=== PATIENT | male | born 1960 | race Caucasian/White ===

== ENCOUNTER → 2018-01-24 11:40 | Outpatient (CLI) | payer OTHER, SELFPAY ==
--- OUTSIDE RECORDS SUMMARY | 2018-03-22 09:20 | XMS RPT_ITS ---
:1960 Author Organization [facility] Care Team Providers Name Role Phone SUMIT KRISHNAMURTHY Referring Unavailable SUMIT KRISHNAMURTHY Attending Unavailable SUMIT KRISHNAMURTHY Referring Unavailable SUMIT KRISHNAMURTHY Referring Unavailable SUMIT KRISHNAMURTHY Attending Unavailable Sumit Krishnamurthy Primary Care Unavailable Referred, Self Attending Unavailable Alexander Riley Attending Unavailable Alexander Riley Referring Unavailable Sumit Krishnamurthy Primary Care Unavailable PROBLEMS PROBLEMS DATE TYPE CONDITION / CODE ATTENDING STATUS SOURCE 03/14/2017 Active Gastro-esophageal NA Active [facility] reflux disease [place] without esophagitis Repository / K21.9(ICD-10) 03/14/2017 Active Impaired fasting NA Active [facility] glucose / [place] R73.01(ICD-10) Repository 03/14/2017 Active Mixed hyperlipidemia NA Active [facility] / E78.2(ICD-10) [place] Repository 03/14/2017 Active Unknown / KRISHNAMURTHY, Active [facility] UNK(Unknown) SUMIT Mcmillan [place] Repository 03/10/2017 Active Other detention NA Active [facility] (current) drug [place] therapy / Repository Z79.899(ICD-10) PROCEDURES PROCEDURES No Procedure Records FoundRESULTS RESULTS Observed: 01/24/2018 Status: F Source: [place] CULTURE, NOSE 11:40 AM [facility] REPOSITORY Gram Stain Gram Stain Rare Epithelial cells No organisms seen Nasoph. Cult No growth in 48 hours. Performed By: #### [id number] #### [facility] [address] [place], [address] PROGRESS Observed: 12/06/2017 Status: COMPLETED Source: [place] 7:28 AM [facility] REPOSITORY O ID: [id number] Author: Sumit Krishnamurthy Service: (none) Author Type: Physician Type: Progress Notes Filed: 12/06/2017 7:34 AM Note Text: CC: Roger Driscoll is a 57 year old male who presents to the office for 6 months follow up HPI: HPL, trying to diet control, not interested in statin therapy, is taking fish oil supplement regulalry as well. 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 Has also cut back on fried foods. Cholesterol, Total Date Value Ref Range Status 11/26/2017 203 (H) <200 mg/dL Final Comment: <200 mg/dL, Desirable 200-239 mg/dL, Borderline high >239 mg/dL, High HDL Cholesterol Date Value Ref Range Status 11/26/2017 47 >39 mg/dL Final Comment: 40-59 mg/dL, Acceptable >59 mg/dL, High: Negative risk factor for coronary heart disease <40 mg/dL, Low: Positive risk factor for coronary heart disease LDL Cholesterol Date Value Ref Range Status 11/26/2017 133 (H) <100 mg/dL Final Comment: <100 mg/dL, Optimal 100-129 mg/dL, Near optimal/above optimal 130-159 mg/dL, Borderline high 160-189 mg/dL, High >189 mg/dL, Very high Secondary prevention optimal LDL Cholesterol levels are recommended to be < 70 mg/dL Triglyceride Date Value Ref Range Status 11/26/2017 114 <150 mg/dL Final Comment: <150 mg/dL, Normal 150-199 mg/dL, Borderline high 200-499 mg/dL, High >499 mg/dL, Very high Glucose (mg/dL) Date Value 11/26/2017 104 Potassium (mmol/L) Date Value 11/26/2017 4.2 Sodium (mmol/L) Date Value 11/26/2017 140 Chloride (mmol/L) Date Value 11/26/2017 102 CO2 (mmol/L) Date Value 11/26/2017 24 Creatinine (mg/dL) Date Value 11/26/2017 1.14 BUN (mg/dL) Date Value 11/26/2017 14 Anion Gap (mmol/L) Date Value 11/26/2017 14 Calcium (mg/dL) Date Value 11/26/2017 8.9 Protein, Total (g/dL) Date Value 11/26/2017 7.0 Albumin (g/dL) Date Value 11/26/2017 4.2 Bilirubin, Total (mg/dL) Date Value 11/26/2017 0.8 Alkaline Phosphatase (U/L) Date Value 11/26/2017 52 AST (U/L) Date Value 11/26/2017 26 ALT (U/L) Date Value 11/26/2017 30 Hemoglobin (g/dL) Date Value 11/26/2017 16.2 Hematocrit (%) Date Value 11/26/2017 47.5 WBC (k/uL) Date Value 11/26/2017 7.12 Elevated fasting glucose, has made diet improvements as above Hemoglobin A1C Date Value Ref Range Status 11/26/2017 5.5 4.3 - 5.6 % Final 02/15/2016 5.6 4.3 - 5.6 % Final Acid reflux, stable, taking pepcid 20 mg twice a day, no breakthrough symptoms except for when occasionally eating pizza Chronic shoulder pain, right side most significant, 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 Sometimes feels like the front of his shoulder area pops with arm flexion by description and difficulty with extension and internal rotation PAST MEDICAL HISTORY Diagnosis Date - Acid reflux - Elevated glucose 06/2015 - Hypercholesteremia 06/2015 PAST SURGICAL HISTORY Procedure Laterality Date - COLONOSCOPY 2012 - EGD 2012 Current Outpatient Prescriptions: pantoprazole DR (PROTONIX) 20 mg tablet Take 1 tablet by mouth once daily. FLUTICASONE PROPIONATE (FLONASE NASAL) Use in the nose. SAW/PYGEUM/NETTLE/PUMPKN/AA#17 (PROSTATE HEALTH FORMULA ORAL) Take by mouth. No current facility-administered medications for this visit. 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 Uvula midline. Neck: No LAD, no thyromegaly, no meningismus. CV: RRR, no murmur Lungs: CTA b/l, no wheezing Skin: No rashes, lesions, or wounds on exposed skin. No edema, normal pulses Weak lift off testing right shoulder, anterior TTP , no signs of impingement or bursitis, weakness of rotator cuff muscles ASSESSMENT/PLAN: 1. Gastroesophageal reflux disease without esophagitis - ICD9: 530.81, ICD10: K21.9 (primary diagnosis) - Discussed lifestyle modifications including losing weight, limiting caffeine, no meals three hours before sleep and head of bed elevation - Continue treatment with Pepcid 20 mg BID 2. Elevated fasting blood sugar - ICD9: 790.21, ICD10: R73.01 - stable, continue efforts at weight loss 3. Hyperlipidemia, mixed - ICD9: 272.2, ICD10: E78.2 - suboptimal control - Encouraged following a low fat, low cholesterol diet. - Discussed the benefits of regular aerobic exercise and weight loss. 4. Chronic pain of both shoulders - ICD9: 719.41, 338.29, ICD10: M25.511, G89.29, M25.512 - likely related to labrum disorder and rotator cuff partial tear/weakness, stretches and strengthening exercises given to him today, f/u for xray and MRI shoulder and referral to Orthopedics and PHYSICAL THERAPY when interested. Sumit Krishnamurthy DO Return if no improvement. Follow up with Sumit Krishnamurthy DO. Discussed risks, benefits, alternatives, and potential side effects of medications. Patient/Guardian expressed understanding and agreed with the plan. See patient instructions. Sumit Krishnamurthy DO [address] [place] [address] CNOV Observed: 12/05/2017 Status: COMPLETED Source: [place] 3:00 PM [facility] REPOSITORY Office Visit (FAMPWS) ROGER DRISCOLL ([id number]) 1960 M Date Time Provider Department 12/05/17 3:00 PM SUMIT KRISHNAMURTHY FAMReneWS During your visit today, we recorded the following information about you: Temperature Pulse Respiration Blood pressure 97 degrees 80/minute 16/minute 110/76 Weight 95.7 kg Sumit Krishnamurthy DO 12/05/2017 3:47 PM Signed Sumit Krishnamurthy DO 12/06/2017 7:34 AM Signed CC: Roger Driscoll is a 57 year old male who presents to the office for 6 months follow up HPI: HPL, trying to diet control, not interested in statin therapy, is taking fish oil supplement regulalry as well. 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 Has also cut back on fried foods. Cholesterol, Total Date Value Ref Range Status 11/26/2017 203 (H) <200 mg/dL Final Comment: <200 mg/dL, Desirable 200-239 mg/dL, Borderline high >239 mg/dL, High HDL Cholesterol Date Value Ref Range Status 11/26/2017 47 >39 mg/dL Final Comment: 40-59 mg/dL, Acceptable >59 mg/dL, High: Negative risk factor for coronary heart disease <40 mg/dL, Low: Positive risk factor for coronary heart disease LDL Cholesterol Date Value Ref Range Status 11/26/2017 133 (H) <100 mg/dL Final Comment: <100 mg/dL, Optimal 100-129 mg/dL, Near optimal/above optimal 130-159 mg/dL, Borderline high 160-189 mg/dL, High >189 mg/dL, Very high Secondary prevention optimal LDL Cholesterol levels are recommended to be < 70 mg/dL Triglyceride Date Value Ref Range Status 11/26/2017 114 <150 mg/dL Final Comment: <150 mg/dL, Normal 150-199 mg/dL, Borderline high 200-499 mg/dL, High >499 mg/dL, Very high Glucose (mg/dL) Date Value 11/26/2017 104 Potassium (mmol/L) Date Value 11/26/2017 4.2 Sodium (mmol/L) Date Value 11/26/2017 140 Chloride (mmol/L) Date Value 11/26/2017 102 CO2 (mmol/L) Date Value 11/26/2017 24 Creatinine (mg/dL) Date Value 11/26/2017 1.14 BUN (mg/dL) Date Value 11/26/2017 14 Anion Gap (mmol/L) Date Value 11/26/2017 14 Calcium (mg/dL) Date Value 11/26/2017 8.9 Protein, Total (g/dL) Date Value 11/26/2017 7.0 Albumin (g/dL) Date Value 11/26/2017 4.2 Bilirubin, Total (mg/dL) Date Value 11/26/2017 0.8 Alkaline Phosphatase (U/L) Date Value 11/26/2017 52 AST (U/L) Date Value 11/26/2017 26 ALT (U/L) Date Value 11/26/2017 30 Hemoglobin (g/dL) Date Value 11/26/2017 16.2 Hematocrit (%) Date Value 11/26/2017 47.5 WBC (k/uL) Date Value 11/26/2017 7.12 Elevated fasting glucose, has made diet improvements as above Hemoglobin A1C Date Value Ref Range Status 11/26/2017 5.5 4.3 - 5.6 % Final 02/15/2016 5.6 4.3 - 5.6 % Final Acid reflux, stable, taking pepcid 20 mg twice a day, no breakthrough symptoms except for when occasionally eating pizza Chronic shoulder pain, right side most significant, 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 Sometimes feels like the front of his shoulder area pops with arm flexion by description and difficulty with extension and internal rotation PAST MEDICAL HISTORY Diagnosis Date - Acid reflux - Elevated glucose 06/2015 - Hypercholesteremia 06/2015 PAST SURGICAL HISTORY Procedure Laterality Date - COLONOSCOPY 2012 - EGD 2012 Current Outpatient Prescriptions: pantoprazole DR (PROTONIX) 20 mg tablet Take 1 tablet by mouth once daily. FLUTICASONE PROPIONATE (FLONASE NASAL) Use in the nose. SAW/PYGEUM/NETTLE/PUMPKN/AA#17 (PROSTATE HEALTH FORMULA ORAL) Take by mouth. No current facility-administered medications for this visit. 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 Uvula midline. Neck: No LAD, no thyromegaly, no meningismus. CV: RRR, no murmur Lungs: CTA b/l, no wheezing Skin: No rashes, lesions, or wounds on exposed skin. No edema, normal pulses Weak lift off testing right shoulder, anterior TTP , no signs of impingement or bursitis, weakness of rotator cuff muscles ASSESSMENT/PLAN: 1. Gastroesophageal reflux disease without esophagitis - ICD9: 530.81, ICD10: K21.9 (primary diagnosis) - Discussed lifestyle modifications including losing weight, limiting caffeine, no meals three hours before sleep and head of bed elevation - Continue treatment with Pepcid 20 mg BID 2. Elevated fasting blood sugar - ICD9: 790.21, ICD10: R73.01 - stable, continue efforts at weight loss 3. Hyperlipidemia, mixed - ICD9: 272.2, ICD10: E78.2 - suboptimal control - Encouraged following a low fat, low cholesterol diet. - Discussed the benefits of regular aerobic exercise and weight loss. 4. Chronic pain of both shoulders - ICD9: 719.41, 338.29, ICD10: M25.511, G89.29, M25.512 - likely related to labrum disorder and rotator cuff partial tear/weakness, stretches and strengthening exercises given to him today, f/u for xray and MRI shoulder and referral to Orthopedics and PHYSICAL THERAPY when interested. Sumit Krishnamurthy DO Return if no improvement. Follow up with Sumit Krishnamurthy DO. Discussed risks, benefits, alternatives, and potential side effects of medications. Patient/Guardian expressed understanding and agreed with the plan. See patient instructions. Sumit Krishnamurthy DO [address] [place] [address] Referring Provider: SELF [200] Allergies As of Date: 12/05/2017 Noted Allergy Reaction ASPIRIN 02/14/2016 14 - Other: See Comments Comments: Weakness and flu symptoms Date Reviewed: 12/05/2017 Reviewed by: Susan Veliz LPN - Fully Assessed Reason for Visit: Follow Up [171] Cmt: Labs Primary Visit Diagnosis:Gastroesophageal reflux disease without esophagitis [K21.9] Other Visit Diagnoses:Elevated fasting blood sugar [R73.01] Hyperlipidemia, mixed [E78.2] Chronic pain of both shoulders [M25.511, G89.29, M25.512] Prescriptions as of 12/05/2017 Sig: PANTOPRAZOLE 20 MG TABLET,DEL* Take 1 tablet by mouth once d* FLONASE NASAL Use in the nose. PROSTATE HEALTH FORMULA ORAL Take by mouth. Problem List As Of Date 12/05/2017 Noted Resolved Seizures (HCC) [R56.9] INVALID FOR*02/14/2016 TIA (transient ischemic attack) [G45.9] INVALID FOR* Smoking [F17.200] INVALID FOR* Transient loss of consciousness [R55] INVALID FOR* Hyperlipidemia, mixed [E78.2] INVALID FOR* Elevated fasting blood sugar [R73.01] INVALID FOR* Gastroesophageal reflux disease without esophag*INVALID FOR* Chronic pain of both shoulders [M25.511, G89.29*INVALID FOR* Other instructions from your clinician: Medications Discontinued During This Encounter lamoTRIgine (LAMICTAL) 25 mg tablet 90 t* 2 02/23/2016 12/05/2017 Route: ORAL Sig: Take 1 tablet by mouth once daily. Disc: Reason for discontinue is not on file. lamoTRIgine (LAMICTAL) 100 mg tablet 60 t* 1 02/23/2016 12/05/2017 Route: ORAL Sig: Take 1 tablet by mouth twice daily. Disc: Reason for discontinue is not on file. Annotated image of STRO INTM ROTATOR CUFF EXERCISES PG1 last updated by Sumit Krishnamurthy on 12/05/2017 3:47 PM Annotated image of STRO INTM ROTATOR CUFF EXERCISES PG2 last updated by Sumit Krishnamurthy on 12/05/2017 3:47 PM Annotated image of STRO INTM ROTATOR CUFF EXERCISES PG3 last updated by Sumit Krishnamurthy on 12/05/2017 3:47 PM Annotated image of STRO INTM ROTATOR CUFF EXERCISES PG3 last updated by Sumit Krishnamurthy on 12/05/2017 3:47 PM Annotated image of STRO INTM ROTATOR CUFF EXERCISES PG4 last updated by Sumit Krishnamurthy on 12/05/2017 3:47 PM Annotated image of STRO INTM ROTATOR CUFF EXERCISES PG5 last updated by Sumit Krishnamurthy on 12/05/2017 3:47 PM Annotated image of STRO INTM ROTATOR CUFF EXERCISES PG6 last updated by Sumit Krishnamurthy on 12/05/2017 3:47 PM Annotated image of STRO INTM ROTATOR CUFF EXERCISES PG7 last updated by Sumit Krishnamurthy on 12/05/2017 3:47 PM Annotated image of STRO INTM ROTATOR CUFF EXERCISES PG8 last updated by Sumit Krishnamurthy on 12/05/2017 3:47 PM Encounter Status:Closed by SUMIT KRISHNAMURTHY DO on 12/06/17 CBC Collected: 11/26/2017 Status: F Source: [place] 7:59 AM [facility] REPOS[facility] TYPE CODE TESTS RESULT OUT OF REFERENCE UNITS RANGE LAB WBC 3.70-11.00 k/uL WBC 7.12 LAB RBC 4.20-6.00 m/uL RBC 5.22 LAB HGB 13.0-17.0 g/dL Hemoglobin 16.2 LAB HCT 39.0-51.0 % Hematocrit 47.5 LAB MCV 80.0-100.0 fL MCV 91.0 LAB MCH 26.0-34.0 pG MCH 31.0 LAB MCHC 30.5-36.0 g/dL MCHC 34.1 LAB RDWCV 11.5-15.0 % RDW-CV 11.9 LAB PLTCT 150-400 k/uL Platelet Count 262 LAB MPV 9.0-12.7 fL MPV 9.4 LAB ABSNUC <0.01 k/uL Absolute nRBC <0.01 Performed By: #### CBC, CMP, LIPB, HBA1C #### [facility] [address] [place], [place] [address] COMP METABOLIC PANEL Collected: 11/26/2017 Status: F Source: [place] 7:59 AM [facility] REPOSITORY TYPE CODE TESTS RESULT OUT OF REFERENCE UNITS RANGE LAB TP 6.3-8.0 g/dL Protein, Total 7.0 LAB ALB 3.9-4.9 g/dL Albumin 4.2 LAB CA 8.5-10.2 mg/dL Calcium, Total 8.9 LAB TBIL 0.2-1.3 mg/dL Bilirubin, Total 0.8 LAB ALKP 38-113 U/L Alkaline Phosphatase 52 LAB AST 14-40 U/L AST 26 LAB GLU 74-99 mg/dL Glucose High 104 Result Comment: The [place] Diabetes Association (ADA) provides guidance for cutoff values for fasting glucose and random glucose. The ADA defines fasting as no caloric intake for at least 8 hours. Fas ting plasma glucose results between 100 to 125 mg/dL indicate increased risk for diabetes (prediabetes). Fasting plasma glucose results greater than or equal to 126 mg/dL meet the criteria for diagnosis of diabetes. In the absence of unequivocal hyperglycemia, results should be confirmed by repeat testing. In a patient with classic symptoms of hyperglycemia or hyperglycemic crisis, random plasma glucose results greater than or equal to 200 mg/dL meet the criteria for diagnosis of diabetes. Reference: Standards of Medical Care in Diabetes 2016, [place] Diabetes Association. Diabetes Care. 2016.39(Suppl 1). LAB BUN 9-24 mg/dL BUN 14 LAB CRET 0.73-1.22 mg/dL Creatinine 1.14 LAB NA 136-144 mmol/L Sodium 140 LAB K 3.7-5.1 mmol/L Potassium 4.2 LAB CL 97-105 mmol/L Chloride 102 LAB CO2 22-30 mmol/L CO2 24 LAB AGAP 9-18 mmol/L Anion Gap 14 LAB ALT 10-54 U/L ALT 30 LAB GFRAA eGFR- Amer. >60 LAB GFRNAA . eGFR-All Other Races >60 Result Comment: eGFR (Estimated GFR) Units of measure: mL/min/1.73 meters squared eGFR is derived from the reexpressed MDRD Study equation using the following parameters: serum creatinine, age, gender and race. The creatinine assay has been calibrated to be traceable to IDMS. An eGFR <60 mL/min/1.73m2 for >3 months is consistent with chronic kidney disease. Refer to KDOQI guidelines for clinical interpretation. In patients with unstable renal function, e.g. those with acute kidney injury, the eGFR may not accurately reflect actual GFR. Performed By: #### CBC, CMP, LIPB, HBA1C #### [facility] [address] [place], [place] [address] LIPID PANEL, BASIC Collected: 11/26/2017 Status: F Source: [place] 7:59 AM [facility] [place] REPOSITORY TYPE CODE TESTS RESULT OUT OF REFERENCE UNITS RANGE LAB CHOL <200 mg/dL Cholesterol High 203 Result Comment: <200 mg/dL, Desirable 200-239 mg/dL, Borderline high >239 mg/dL, High LAB TRIGLY <150 mg/dL Triglyceride 114 Result Comment: <150 mg/dL, Normal 150-199 mg/dL, Borderline high 200-499 mg/dL, High >499 mg/dL, Very high LAB HDL >39 mg/dL HDL-Cholesterol 47 Result Comment: 40-59 mg/dL, Acceptable >59 mg/dL, High: Negative risk factor for coronary heart disease <40 mg/dL, Low: Positive risk factor for coronary heart disease LAB LDL <100 mg/dL LDL-Cholesterol High 133 Result Comment: <100 mg/dL, Optimal 100-129 mg/dL, Near optimal/above optimal 130-159 mg/dL, Borderline high 160-189 mg/dL, High >189 mg/dL, Very high Secondary prevention optimal LDL Cholesterol levels are recommended to be < 70 mg/dL LAB NONHDL <130 mg/dL Non HDL High Cholesterol 156 Result Comment: <130 mg/dL, Optimal 130-159 mg/dL, Near optimal/above optimal 160-189 mg/dL, Borderline high 190-219 mg/dL, High >219 mg/dL, Very high Secondary prevention optimal non HDL Cholesterol levels are recommended to be < 100 mg/dL LAB FT hrs Fasting Time 9 LAB VLDL <30 mg/dL VLDL Cholesterol 23 LAB TCHDL <5.10 TC:HDL Ratio 4.32 LAB LDLHDL <2.54 High LDL:HDL Ratio 2.83 Result Comment: Reference: 1. National Cholesterol Education Program ATP III Guideline At-A-Glance Quick Desk Reference: National Heart, Lung, and Blood [place]. National Institutes of Health. 2001: NIH Publication No. 01-3305. 2. An International Atherosclerosis Society position paper: global recommendations for the management of dyslipidemia: executive summary, Atherosclerosis. 2014: 232(2):410-413. Performed By: #### CBC, CMP, LIPB, HBA1C #### [facility] [address] [place], [place] [address] HEMOGLOBIN A1C Collected: 11/26/2017 Status: F Source: [place] 7:59 AM [facility] REPOSITORY TYPE CODE TESTS RESULT OUT OF REFERENCE UNITS RANGE LAB HGBA1C 4.3-5.6 % Hemoglobin A1c 5.5 LAB HBA0 mg/dL Est. Average Glucose 111 Result Comment: eAG: (Estimated average glucose) is a calculated value from HgbA1c and is consumer sales representative of the average blood glucose level in the last 2-3 month period. Performed By: #### CBC, CMP, LIPB, HBA1C #### [facility] [address] [place], [place] [address] PROGRESS Observed: 03/14/2017 Status: COMPLETED Source: [place] 12:09 PM [facility] REPOSITORY HNO ID: [id number] Author: Sumit Krishnamurthy Service: (none) Author Type: Physician Type: Progress Notes Filed: 03/14/2017 12:16 PM Note Text: CC: Roger Driscoll is a 57 year old male who presents to the office for physical HPI HPL, stopped taking statin therapy, wasn't interested in continuing, trying to diet control. Denies CP or dyspnea or dizziness/LH Elevated fasting glucose, trying to cut back on simple sugars/carbs, not exercising regularly at this time Acid reflux, interested in trying off his PPI, was on Pepcid prior to the Protonix, has cut out soda, no smoking, no carbonated beverages. Denies melena or BRBPR or dysphagia symptoms. Occasional increased heartburn when eating red sauces. 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 No swelling, feels a popping sensation in anterior shoulder. No use of NSAIDs, rare icing with some relief. PAST MEDICAL HISTORY Diagnosis Date - Acid reflux - Elevated glucose 06/2015 - Hypercholesteremia 06/2015 PAST SURGICAL HISTORY Procedure Laterality Date - COLONOSCOPY 2012 - EGD 2012 Social History: Social History Substance Use Topics - Smoking status: Former Smoker Types: Cigarettes Quit date: 09/11/2002 - Smokeless tobacco: Never Used - Alcohol use No FAMILY HISTORY Problem Relation Age of Onset - Heart Mother 80 - Heart Father 80 - Breast Cancer Sister 45 Current Outpatient prescriptions: pantoprazole DR (PROTONIX) 20 mg tablet TAKE 1 TABLET BY MOUTH EVERY DAY lamoTRIgine (LAMICTAL) 25 mg tablet Take 1 tablet by mouth once daily. lamoTRIgine (LAMICTAL) 100 mg tablet Take 1 tablet by mouth twice daily. FLUTICASONE PROPIONATE (FLONASE NASAL) Use in the nose. SAW/PYGEUM/NETTLE/PUMPKN/AA#17 (PROSTATE HEALTH FORMULA ORAL) Take by mouth. Allergies: ALLERGIES Allergen Reactions - Aspirin Other: See Comments Weakness and flu symptoms ROS: See HPI PE: 03/14/17 1006 BP: 120/80 Pulse: 80 Resp: 16 Temp: (!) 35.8 ?C (96.4 ?F) TempSrc: Left Tympanic Weight: 93.4 kg (206 lb) Height: 178.4 cm (5' 10.25) Gen: AANDO, NAD, non-toxic appearing, Pleasant, cooperative HEENT: NT/AC, PERRLA, EOMs intact b/l, nares clear and patent b/l, pharynx without erythema, exudate or lesions. Uvula midline. EACs without erythema or debris. TMs pearly lanier with intact landmarks b/l. Neck: supple, No cervical LAD, no thyromegaly, no carotid bruits CV: RRR, normal S1 and S2, no murmurs, no gallops, no rubs, Pulses 2+ and symmetric in UE and LE b/l Lungs: normal respiratory effort, CTA b/l, no wheezing or rhonchi or rales Abd: soft, NT, ND, +BS, no hepatosplenomegaly MS: FROM all 4 extremities, reduced strength with lift off testing on right >left, signs of impingement of right shoulder on exam Neuro: CN II-XII intact b/l, strength 5/5 b/l UE and LE, DTRs 2/4 UE and LE, sensation intact. Skin: warm, dry, intact, No rashes or lesions on exposed skin. ASSESSMENT/PLAN: 1. Well adult exam - ICD9: V70.0, ICD10: Z00.00 (primary diagnosis) - Recommended regular aerobic exercise. - Discussed need and benefit for weight loss. BMI 29.35 kg/(m2) - Follow up for annual exam in one year. 2. Gastroesophageal reflux disease without esophagitis - ICD9: 530.81, ICD10: K21.9 - Discussed lifestyle modifications including losing weight, limiting caffeine, no meals three hours before sleep and head of bed elevation - CBC 3. Elevated fasting blood sugar - ICD9: 790.21, ICD10: R73.01 - HGB A1C 4. Hyperlipidemia, mixed - ICD9: 272.2, ICD10: E78.2 - suboptimal control - Encouraged following a low fat, low cholesterol diet. - Discussed the benefits of regular aerobic exercise and weight loss. - Check fasting lipid panel and ALT in 6 months. - LIPID PANEL BASIC - COMP METABOLIC PANEL 5. Chronic pain of both shoulders - ICD9: 719.41, 338.29, ICD10: M25.511, G89.29, M25.512 - likely rotator cuff tenditinis and possible labral tear in past, would recommend rotator cuff stretches as given today and icing and prn NSAID, f/u with Orthopedics if isn't improving Sumit Krishnamurthy DO To ER if develops chest pain, shortness of breath, or severe worsening of symptoms. Discussed risks, benefits, alternatives, and potential side effects of medications. Patient expressed understanding and agreed with the plan. Sumit Krishnamurthy DO [address] [place] [address] USMAN Observed: 03/14/2017 Status: COMPLETED Source: [place] 10:00 AM [facility] REPOSITORY [facility] ROGER DRISCOLL ([id number]) 1960 M Date Time Provider Department 03/14/17 10:00 AM SUMIT KRISHNAMURTHY During your visit today, we recorded the following information about you: Temperature Pulse Respiration Blood pressure 96.4 degrees 80/minute 16/minute 120/80 Weight Height 93.4 kg 1.784 m Sumit Krishnamurthy, 03/14/2017 10:54 AM Signed Sumit Krishnamurthy, DO 03/14/2017 12:16 PM Signed CC: Roger Driscoll is a 57 year old male who presents to the office for physical HPI HPL, stopped taking statin therapy, wasn't interested in continuing, trying to diet control. Denies CP or dyspnea or dizziness/LH Elevated fasting glucose, trying to cut back on simple sugars/carbs, not exercising regularly at this time Acid reflux, interested in trying off his PPI, was on Pepcid prior to the Protonix, has cut out soda, no smoking, no carbonated beverages. Denies melena or BRBPR or dysphagia symptoms. Occasional increased heartburn when eating red sauces. 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 No swelling, feels a ANDquot;poppingANDquot; sensation in anterior shoulder. No use of NSAIDs, rare icing with some relief. PAST MEDICAL HISTORY Diagnosis Date - Acid reflux - Elevated glucose 06/2015 - Hypercholesteremia 06/2015 PAST SURGICAL HISTORY Procedure Laterality Date - COLONOSCOPY 2012 - EGD 2012 Social History: Social History Substance Use Topics - Smoking status: Former Smoker Types: Cigarettes Quit date: 09/11/2002 - Smokeless tobacco: Never Used - Alcohol use No FAMILY HISTORY Problem Relation Age of Onset - Heart Mother 80 - Heart Father 80 - Breast Cancer Sister 45 Current Outpatient prescriptions: pantoprazole DR (PROTONIX) 20 mg tablet TAKE 1 TABLET BY MOUTH EVERY DAY lamoTRIgine (LAMICTAL) 25 mg tablet Take 1 tablet by mouth once daily. lamoTRIgine (LAMICTAL) 100 mg tablet Take 1 tablet by mouth twice daily. FLUTICASONE PROPIONATE (FLONASE NASAL) Use in the nose. SAW/PYGEUM/NETTLE/PUMPKN/AA#17 (PROSTATE HEALTH FORMULA ORAL) Take by mouth. Allergies: ALLERGIES Allergen Reactions - Aspirin Other: See Comments Weakness and flu symptoms ROS: See HPI PE: 03/14/17 1006 BP: 120/80 Pulse: 80 Resp: 16 Temp: (!) 35.8 ?C (96.4 ?F) TempSrc: Left Tympanic Weight: 93.4 kg (206 lb) Height: 178.4 cm (5' 10.25ANDquot;) Gen: AANDamp;O, NAD, non-toxic appearing, Pleasant, cooperative HEENT: NT/AC, PERRLA, EOMs intact b/l, nares clear and patent b/l, pharynx without erythema, exudate or lesions. Uvula midline. EACs without erythema or debris. TMs pearly lanier with intact landmarks b/l. Neck: supple, No cervical LAD, no thyromegaly, no carotid bruits CV: RRR, normal S1 and S2, no murmurs, no gallops, no rubs, Pulses 2+ and symmetric in UE and LE b/l Lungs: normal respiratory effort, CTA b/l, no wheezing or rhonchi or rales Abd: soft, NT, ND, +BS, no hepatosplenomegaly MS: FROM all 4 extremities, reduced strength with lift off testing on right ANDgt;left, signs of impingement of right shoulder on exam Neuro: CN II-XII intact b/l, strength 5/5 b/l UE and LE, DTRs 2/4 UE and LE, sensation intact. Skin: warm, dry, intact, No rashes or lesions on exposed skin. ASSESSMENT/PLAN: 1. Well adult exam - ICD9: V70.0, ICD10: Z00.00 (primary diagnosis) - Recommended regular aerobic exercise. - Discussed need and benefit for weight loss. BMI 29.35 kg/(m2) - Follow up for annual exam in one year. 2. Gastroesophageal reflux disease without esophagitis - ICD9: 530.81, ICD10: K21.9 - Discussed lifestyle modifications including losing weight, limiting caffeine, no meals three hours before sleep and head of bed elevation - CBC 3. Elevated fasting blood sugar - ICD9: 790.21, ICD10: R73.01 - HGB A1C 4. Hyperlipidemia, mixed - ICD9: 272.2, ICD10: E78.2 - suboptimal control - Encouraged following a low fat, low cholesterol diet. - Discussed the benefits of regular aerobic exercise and weight loss. - Check fasting lipid panel and ALT in 6 months. - LIPID PANEL BASIC - COMP METABOLIC PANEL 5. Chronic pain of both shoulders - ICD9: 719.41, 338.29, ICD10: M25.511, G89.29, M25.512 - likely rotator cuff tenditinis and possible labral tear in past, would recommend rotator cuff stretches as given today and icing and prn NSAID, f/u with Orthopedics if isn't improving Sumit Krishnamurthy DO To ER if develops chest pain, shortness of breath, or severe worsening of symptoms. Discussed risks, benefits, alternatives, and potential side effects of medications. Patient expressed understanding and agreed with the plan. Sumit Krishnamurthy DO [address] [place] [address] Referring Provider: SUMIT KRISHNAMURTHY [[id number]] Allergies As of Date: 03/14/2017 Noted Allergy Reaction ASPIRIN 02/14/2016 14 - Other: See Comments Comments: Weakness and flu symptoms Date Reviewed: 03/14/2017 Reviewed by: Susan Veliz LPN - Fully Assessed Reason for Visit: Physical [83] Primary Visit Diagnosis:Well adult exam [Z00.00] Other Visit Diagnoses:Gastroesophageal reflux disease without esophagitis [K21.9] Elevated fasting blood sugar [R73.01] Hyperlipidemia, mixed [E78.2] Chronic pain of both shoulders [M25.511, G89.29, M25.512] Order(s):pantoprazole DR (PROTONIX) 20 mg tabletTake 1 tablet by mouth once daily.Disp: 90 tabletRfl: 3 LIPID PANEL BASIC [SQLIPB] Order #: [id number] FUTURE COMP METABOLIC PANEL [SQCMP] Order #: [id number] FUTURE HGB A1C [QUEMA6C] Order #: [id number] FUTURE CBC [SQCBC] Order #: [id number] FUTURE Prescriptions as of 03/14/2017 Sig: PANTOPRAZOLE 20 MG TABLET,DEL* Take 1 tablet by mouth once d* LAMOTRIGINE 25 MG TABLET Take 1 tablet by mouth once d* LAMOTRIGINE 100 MG TABLET Take 1 tablet by mouth twice * FLONASE NASAL Use in the nose. PROSTATE HEALTH FORMULA ORAL Take by mouth. Problem List As Of Date 03/14/2017 Noted Resolved Seizures (HCC) [R56.9] INVALID FOR*02/14/2016 TIA (transient ischemic attack) [G45.9] INVALID FOR* Smoking [F17.200] INVALID FOR* Transient loss of consciousness [R55] INVALID FOR* Hyperlipidemia, mixed [E78.2] INVALID FOR* Elevated fasting blood sugar [R73.01] INVALID FOR* Gastroesophageal reflux disease without esophag*INVALID FOR* Chronic pain of both shoulders [M25.511, G89.29*INVALID FOR* Other instructions from your clinician: Prescriptions ordered this encounter Disp Refills Start End PANTOPRAZOLE 20 MG TABLET,DELAYED RE* 90 t* 3 03/14/2017 Route: ORAL Sig: Take 1 tablet by mouth once daily. Medications Discontinued During This Encounter atorvastatin (LIPITOR) 80 mg tablet 30 t* 2 02/16/2016 03/14/2017 Class: Print RX Route: ORAL Sig: Take 1 tablet by mouth daily at bedtime. Disc: Reason for discontinue is not on file. pantoprazole DR (PROTONIX) 20 mg tab* 90 t* 0 11/08/2016 03/14/2017 Sig: TAKE 1 TABLET BY MOUTH EVERY DAY Disc: Reason for discontinue is not on file. Annotated image of STRO INTM ROTATOR CUFF EXERCISES PG1 last updated by Sumit Krishnamurthy on 03/14/2017 10:53 AM Annotated image of STRO INTM ROTATOR CUFF EXERCISES PG2 last updated by Sumit Krishnamurthy on 03/14/2017 10:53 AM Annotated image of STRO INTM ROTATOR CUFF EXERCISES PG3 last updated by Sumit Krishnamurthy on 03/14/2017 10:53 AM Annotated image of STRO INTM ROTATOR CUFF EXERCISES PG4 last updated by Sumit Krishnamurthy on 03/14/2017 10:53 AM Annotated image of STRO INTM ROTATOR CUFF EXERCISES PG5 last updated by Sumit Krishnamurthy on 03/14/2017 10:53 AM Annotated image of STRO INTM ROTATOR CUFF EXERCISES PG6 last updated by Sumit Krishnamurthy on 03/14/2017 10:53 AM Annotated image of STRO INTM ROTATOR CUFF EXERCISES PG6 last updated by Sumit Krishnamurthy on 03/14/2017 10:53 AM Annotated image of STRO INTM ROTATOR CUFF EXERCISES PG7 last updated by Sumit Krishnamurthy on 03/14/2017 10:53 AM Annotated image of STRO INTM ROTATOR CUFF EXERCISES PG8 last updated by Sumit Krishnamurthy on 03/14/2017 10:53 AM Encounter Status:Closed by SUMIT KRISHNAMURTHY DO on 03/14/17 LIPID PANEL, BASIC Collected: 03/10/2017 Status: F Source: [place] 11:18 AM [facility] REPOSITORY TYPE CODE TESTS RESULT OUT OF REFERENCE UNITS RANGE LAB TRIGLY 30-149 mg/dL Triglyceride 133 LAB CHOL 100-199 mg/dL Cholesterol High 221 LAB HDL >45 mg/dL HDL-Cholesterol 48 LAB VLDL 6-40 mg/dL VLDL Cholesterol 27 LAB LDL 60-129 mg/dL High LDL-Cholesterol 146 LAB FT hrs Fasting Time 12 LAB TCHDL 1.00-5.00 TC:HDL Ratio 4.60 LAB LDLHDL 0.50-3.55 LDL:HDL Ratio 3.04 LAB NONHDL 90-159 mg/dL Non HDL High Cholesterol 173 Performed By: #### LIPB #### [facility] [address] [place] [id number] PROGRESS Observed: 03/09/2017 Status: COMPLETED Source: [place] 1:13 PM [facility] REPOSITORY HNO ID: [id number] Author: Martin Gutierrez [facility] Service: (none) Author Type: (none) Type: Progress Notes Filed: 03/09/2017 1:13 PM Note Text: I called patient and left a detailed voicemail on his machine. He has my number if he has any questions/concerns. PROGRESS Observed: 03/09/2017 Status: COMPLETED Source: [place] 1:12 PM [facility] REPOSITORY HNO ID: [id number] Author: Martin Gutierrez [facility] Service: (none) Author Type: (none) Type: Progress Notes Filed: 03/09/2017 1:13 PM Note Text: Discussed briefly in teamlet Roger has an upcoming appointment 03/14/2017. He's due for a Lipid panel prior to the appointment, if possible. I will call to remind him of his upcoming appointment and also discuss due HM. Health Maintenance Due: HEPATITIS C SCREENING due on 2004 INFLUENZA(1) due on 10/29/2016 CONNIE Observed: 03/01/2017 Status: COMPLETED Source: [place] 12:00 AM [facility] REPOSITORY Patient Outreach ([facility]) ROGER DRISCOLL ([id number]) 1960 M Date Time Provider Department 03/01/17 [facility] During your visit today, we recorded the following information about you: Martin Gutierrez [facility] 03/09/2017 1:13 PM Signed Discussed briefly in teamlet Roger has an upcoming appointment 03/14/2017. He's due for a Lipid panel prior to the appointment, if possible. I will call to remind him of his upcoming appointment and also discuss due HM. Health Maintenance Due: HEPATITIS C SCREENING due on 2004 INFLUENZA(1) due on 10/29/2016 Martin Gutierrez [facility] 03/09/2017 1:13 PM Signed I called patient and left a detailed voicemail on his machine. He has my number if he has any questions/concerns. Allergies As of Date: 03/01/2017 Noted Allergy Reaction ASPIRIN 02/14/2016 14 - Other: See Comments Comments: Weakness and flu symptoms Date Reviewed: 03/03/2016 Reviewed by: Lulu Brewer - Fully Assessed Reason for Visit: PHMA/Care Gap Outreach [[id number]] Visit Diagnosis:Medication management [Z79.899] Order(s):LIPID PANEL BASIC [SQLIPB] Order #: [id number] FUTURE Prescriptions as of 03/01/2017 Sig: PANTOPRAZOLE 20 MG TABLET,DEL* TAKE 1 TABLET BY MOUTH EVERY * LAMOTRIGINE 25 MG TABLET Take 1 tablet by mouth once d* LAMOTRIGINE 100 MG TABLET Take 1 tablet by mouth twice * FLONASE NASAL Use in the nose. PROSTATE HEALTH FORMULA ORAL Take by mouth. ATORVASTATIN 80 MG TABLET Take 1 tablet by mouth daily * Problem List As Of Date 03/01/2017 Noted Resolved Seizures (HCC) [R56.9] INVALID FOR*02/14/2016 TIA (transient ischemic attack) [G45.9] INVALID FOR* Smoking [F17.200] INVALID FOR* Transient loss of consciousness [R55] INVALID FOR* Encounter Status:Closed by MARTIN GUTIERREZ CMA on 03/09/17 ALLERGIES ALLERGIES DATE TYPE / CODE NAME / CODE REACTION SEVERITY SOURCE 02/14/2016 Drug aspirin/[id number] Other Unknown [facility] Allergy/[facility]0 1587(RXNORM) [facility] [address](SNOMED Repository CT) 02/14/2016 DRUG ASPIRIN OTHER: SEE C [facility] INGREDI/[address] [place] [address](SNOMED Repository CT) ENCOUNTERS ENCOUNTERS ADMIT/DISCHARGE ACCOUNT ADMITTING ENCOUNTER LOCATION SOURCE NUMBER CLASS 01/24/2018 [id number] [facility] ing:LABSPEC Repository 12/05/2017/12/07/19 [id number] Ambulatory [address] Repository 11/26/2017/11/27/[id number] Repository 06/06/2017 [id number] [facility] ing:MASS Repository 03/14/2017/03/15/[id number] Repository 03/10/2017 [id number] [facility] Repository PAYERS PAYERS ENCOUNTER GUARANTOR PAYER SUBSCRIBER SOURCE 01/24/2018 ROGER Mcmillan Primary Insurance:MED ROGER Whiteoster [id number] [facility] [place]: [id number] [id number] Repository [address]Muz: [phone]) Date:[id number] [phone] () [address], [place] [address]TI: CHECK WEBSITE 01/24/2018 Secondary NOT GIVENUNK [place] Insurance:SELF PAY [facility] Number: Effective Repository Date:2018-01-24 06/06/2017 Roger Mcmillan Primary NOT GIVENUNK Rachel [id number] Insurance:SELF PAY [place], [place] Number: Effective Repository [id number]: [phone]) Date:2017-05-12 [phone] ()
== END ==
PROVIDERS: Family Provider Student in an Organized Health Care Education/Training Program; PCP Student in an Organized Health Care Education/Training Program; Referring Provider Otolaryngology Otolaryngology/Facial Plastic Surgery; Visit Provider Otolaryngology Otolaryngology/Facial Plastic Surgery
DX: J32.9 Chronic sinusitis, unspecified (principal)
CPT/HCPCS: 87070; 87205

== ENCOUNTER 2018-11-14 08:30 | Outpatient (RCR) | payer OTHER, SELFPAY ==
--- NOTE | 2018-10-16 09:52 | HP.PTEVAL ---
Patient's Visit Information DICKSON AMIN is a 58 year old M referred to Physical Therapy by DAVID ELLIOTT with a diagnosis of Right Shoulder Impingment.. Date of Evaluation: 10/16/18 Physical Therapist: Gabriela Duong DPT - Visit Plan Frequency: 1x/Week Duration: 4 Weeks Plan: Focus on HEP as pt is unable to come to therapy more than 1x a week due to occupation. Scapular strength/stabilization and postural corrections. 10/16/18 HEP given: Postural correction, Body Ergonomics, Scapular retractions, Cane flexion and abduction seated, bilateral ER with Green Tband - Subjective Findings: Right Shoulder pain- has had an issue for a couple years with insidious onset- Is getting a little worse- had an x-ray at [facility] and they sent him to therapy. Pain is located in the anterior shoulder and it fatigues all the way around it- muscle lump in the anterior shoulder. Radiates into upper trap but not to the neck. Describes the pain as achy and if making sudden movement it pops when he moves it anterior. Worst: 4/10 Agg: moving it fowards, holding it up for long periods of time, weight bearing through it. Eases: nothing Best: 0/10. No increase in VANN, blurred vision, dizziness. No change in finger deterity or art director strength. Sleep: not disturbed. 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 Right hand dominate. Does not feel like he can't peform ADL's. PMHx: none Meds: none. - Objective Posture: FH, RS- can correct with tactile cues but does not maintain throughout treatment session. Gait: no deviation noted- good arm swing and trunk rotation- no guarding of the right UE. Palpation: not tender to touch- did have small deviation in the anterior shoulder. Sensation: WNL. ROM: finger dexterity/wrist/Elbow/Cervical: WNL Shoulder: AROM: flexion: 180 with pain at end range, Abd: 170 with pain at end range, IR: thumb to tip of scapula with pain at end range, ER: 60 degrees. AAROM WFL in all planes. Strength: Scapula: fair minus mild winging on the right>left. Associate Data Scientist: equal bilaterally, Wrist/Elbow: 4+/5, Shoulder: 4/5 throughout pain testing with all motions. Special Tests: Neer: positive, Aguirre Malik: positive, Empty Can: positive, Lift Off: negative. - Goals Goal 1:: Patient will be I with HEP and progression Goal Time Frame: 4-6 Weeks Goal 2:: Patient will demo full AROM with 0/10 pain at end range Goal Time Frame: 4-6 Weeks Goal 3:: Patient will maintain proper posture t/o tx session to demo increased scapular s/s. Goal Time Frame: 4-6 Weeks Goal 4:: Patient will report 0/10 pain for 1 week with ADL's and work related tasks. Goal Time Frame: 4-6 Weeks - Rehabilitation Potential Physical Therapy Diagnosis: Patient presents with hypomobility in the right shoulder- he has mild deficits in ROM, strength and functional mobility leading to increased pain with ADL's and work related tasks. Rehabilitation Potential: Fair - Anticipated Interventions Patient/Client Instruction: Educate patient on: Benefits of Fitness Program Therapeutic Exercise to Include: Strength training, Endurance training, Body mechanics, Postural training, Passive ROM, Active ROM, Scapular Strength/Stabilization For the Purpose of:: To improve muscle performance and motor function Cryotherapy (ice pack, ice massage): Yes Thermo therapy (hot pack): Yes For the Purpose of:: To decrease pain Thank you for the opportunity to evaluate your patient. For Medicare and Medicare HMO plans, please review the plan of care and approve it. It will need to be FAXED BACK to us at [phone] for Medicare purposes. For Medicare only, by signing this I certify the plan of care. Please let me know if there are questions or concerns regarding this plan of care. Physician Signature: Date:
--- NOTE | 2018-11-14 09:11 | HP.PTDCSUM ---
HP - PT D/C Summary It has been my pleasure to treat DICKSON AMIN under orders from DAVID ELLIOTT, for the diagnosis of Right Shoulder Impingment. for a total of 4 visit(s). Discharge Date: Please see the following information for a summary of their discharge status. - Subjective Subjective: Pt states he's doing well. No pain or soreness - still can tell just a little if he moves a certain way. Feels he's ready for d/c today. - Overall Improvement % Improvement: 100 - Objective Objective/Function: Advised cont'd caution with OH movements while still healing - can test the swain at the gym if he wants, but not over do it. Cont HEP - when easy, do more reps to work stability and endurance to fatigue-resistant muscles. Tested some OH movements and ex's today - completed without issue. - Goals Goal 1:: Patient will be I with HEP and progression Goal 2:: Patient will demo full AROM with 0/10 pain at end range Goal 3:: Patient will maintain proper posture t/o tx session to demo increased scapular s/s. Goal 4:: Patient will report 0/10 pain for 1 week with ADL's and work related tasks. - Plan Plan: D/C - D/C Information If there are questions or concerns regarding this patient's physical therapy, please feel free to call me at [phone]. Thank you for the referral of this patient. Sincerely, Gabriela Duong DPT
== END 2018-11-14 19:00 | disposition home or self-care (01) ==
LOC: PT 08:30
PROVIDERS: Family Provider Student in an Organized Health Care Education/Training Program; PCP Student in an Organized Health Care Education/Training Program
DX: M75.41 Impingement syndrome of right shoulder (principal)
CPT/HCPCS: 97110; 97161

== ENCOUNTER 2020-05-13 10:29 | Outpatient (RCR) | payer OTHER, SELFPAY ==
[2016-02-14 09:44] VITALS: BMI 27.8
[2020-05-13] MEDS: COVID-19 VACC, MRNA(PFIZER)/PF 30 MCG/0.3 ML SYRINGE IM (12:12)
[2020-06-03] MEDS: COVID-19 VACC, MRNA(PFIZER)/PF 30 MCG/0.3 ML SYRINGE IM (11:52)
== END 2020-05-13 23:59 ==
LOC: IMMUN 10:29
PROVIDERS: PCP Student in an Organized Health Care Education/Training Program; Visit Provider Family Medicine
DX: Z23 Encounter for immunization (principal)
CPT/HCPCS: 0001A; 0002A; 91300